=== PATIENT | male | born 1955 | race Caucasian/White ===

== ENCOUNTER 2017-02-24 05:52 | Day surgery (SDC) | payer BC ==
[2017-02-24] MEDS ORDERED: Lactated Ringers 1,000 ML IV SCH (06:00)
[2017-02-24 06:21] VITALS: O2SAT 95
[2017-02-24] MEDS ORDERED: Versed 2 MG/2 ML Injection IV ONE (08:00)
[2017-02-24] MEDS ORDERED: DIPRIVAN 200 MG/20 ML IV ONE (08:00)
--- NOTE | 2017-02-24 08:17 | OP ---
SURGERY DATE/TIME: 02/24/2017727 PREOPERATIVE DIAGNOSIS: Screening exam. POSTOPERATIVE DIAGNOSIS: Mild sigmoid diverticulosis otherwise normal colon. PROCEDURE: Colonoscopy. SURGEON: Dr. Massey. ANESTHESIA: MAC. Medications given by anesthesia department. HISTORY: The patient is a 61 year-old white male patient presenting now for screening colonoscopy. He reports he had one ten years ago which was normal. He was reappraised of the risks of the procedure including the risk of perforation, phlebitis, untoward reaction to medication, bleeding, and missed lesions. The patient verbalized his understanding and desired to have the procedure performed. DESCRIPTION OF PROCEDURE: The patient was given the medications by the anesthesia department. He had continuous pulse oximetry, ECG monitoring, intermittent blood pressure monitoring, and tidal CO2 monitoring during the examination. He was placed in the left lateral decubitus position. A digital rectal examination was performed and revealed normal anal sphincter tone, no masses and a normal prostate. The flexible Olympus pediatric colonoscope was used to intubate the rectum. A view of the colon was developed sequentially to the cecum. Upon insertion and withdrawal, including a retroflex view in the rectum, there was noted mild sigmoid diverticulosis but otherwise no mucosal lesions were encountered. The scope was removed from the patient who tolerated the procedure well and was sent back to OP recovery in good condition. The prep was noted to be fair to good.
[2017-02-24 08:20] VITALS: BP 124/74; PULSE 68
== END 2017-02-24 08:58 | disposition home or self-care (01) ==
LOC: SDC 05:52 → EDSTATUS 06:30 → SDC 08:58
PROVIDERS: ATTEND Family Medicine
PROC: 0DJD8ZZ Inspection of Lower Intestinal Tract, Via Natural or Artificial Opening Endoscopic (ICD-10-PCS; principal; 2017-02-24)
DX: Z12.11 Encounter for screening for malignant neoplasm of colon (principal); K57.30 Diverticulosis of large intestine without perforation or abscess without bleeding
CPT/HCPCS: 00810; J2250; J2704